=== PATIENT | female | born 1985 | race African-American/Black ===

== ENCOUNTER 2017-10-27 17:17 | Emergency (ER) | payer MEDICAID, OTHER ==
[~2017-10-27] VITALS: Ht 157.5 cm; Wt 79.4 kg
[2017-10-27 17:22] VITALS: BP 143/90
[2017-10-27 18:34] LABS: Basophils # (auto) 0.1 uL; Basophils % (auto) 1.1 % (0.0-2.0); Eosinophils # (auto) 0.1 uL; Eosinophils % (auto) 2.1 % (0.0-7.0); Hematocrit 38.9 % (36.0-46.0); Hemoglobin 12.6 g/dL (12.2-16.2); Lymphocytes # (auto) 1.8 uL; Lymphocytes % (auto) 27.5 % (10.0-50.0); Mean Corpuscular Hemoglobin 27.3 pg (28.0-32.0); Mean Corpuscular Hgb Conc. 32.3 g/dL (32.0-36.0); Mean Corpuscular Volume 84.3 fL (80.0-100.0); Monocytes # (auto) 0.4 uL; Monocytes % (auto) 6.7 % (0.0-12.0); Neutrophils # (auto) 4.1 uL; Neutrophils % (auto) 62.6 % (37.0-80.0); Nucleated Red Blood Cells % 0.1 %; Platelet Count (auto) 155 10^3/uL (140-450); Red Blood Cells 4.61 10^6/uL (4.0-5.20); Red Cell Distribution Width 13.7 % (11.8-14.3); White Blood Cell 6.5 10^3/uL (4.4-10.8)
[2017-10-27 18:57] LABS: Alanine Aminotransferase 25 U/L (13-56); Albumin 3.7 g/dL (3.4-5.0); Anion Gap 9 (5-15); Aspartate Aminotransferase 13 U/L (15-37); Blood Urea Nitrogen 12 mg/dL (7-18); Calcium 8.6 mg/dL (8.5-10.1); Carbon Dioxide 22 mmol/L (21-32); Chloride 108 mmol/L (98-107); GFR African American 98 mL/min; GFR Non-African American 81 mL/min; Glucose 84 mg/dL (74-106); Magnesium 2.3 mg/dL (1.6-2.6); Potassium 3.7 mmol/L (3.5-5.1); Sodium 139 mmol/L (136-145)
[2017-10-27 19:02] LABS: Alkaline Phosphatase 60 U/L (45-117); Bilirubin, Total 0.2 mg/dL (0.2-1.0); Total Protein 7.2 g/dL (6.4-8.2)
== END 2017-10-28 01:16 | disposition left against medical advice (07) ==
LOC: ER 17:20
DX: R07.9 Chest pain, unspecified (principal); Z53.21 Procedure and treatment not carried out due to patient leaving prior to being seen by health care provider
CPT/HCPCS: 36415; 71046; 80053; 83735; 84484; 85025; 93005

== ENCOUNTER 2019-01-06 12:45 | Observation (INO) | payer MEDICAID ==
[~2019-01-06] VITALS: Ht 157.5 cm; Wt 74.4 kg
[2019-01-06] MEDS ORDERED: PROMETHAZINE HCL 25 MG/ML 1ML IV ONE (13:45)
[2019-01-06] MEDS ORDERED: LACTATED RINGER'S 1,000 ML IV ONE (13:45)
[2019-01-06] MEDS ORDERED: PREN-96 PO (14:57)
[2019-01-06] MEDS ORDERED: FOLI1TAB6 PO (14:57)
== END 2019-01-06 15:05 | disposition home or self-care (01) | DRG 566 ==
LOC: LDRP 12:45
PROVIDERS: ADMIT Obstetrics & Gynecology; ATTEND Obstetrics & Gynecology
DX: O21.2 Late vomiting of pregnancy (principal); E86.0 Dehydration; O99.282 Endocrine, nutritional and metabolic diseases complicating pregnancy, second trimester; O26.892 Other specified pregnancy related conditions, second trimester; R51 Headache; O99.332 Smoking (tobacco) complicating pregnancy, second trimester; F17.200 Nicotine dependence, unspecified, uncomplicated; O99.322 Drug use complicating pregnancy, second trimester; F12.90 Cannabis use, unspecified, uncomplicated; Z3A.23 23 weeks gestation of pregnancy
CPT/HCPCS: 59025; 81002; 96374; G0378; J2550; 96365; 96366

== ENCOUNTER 2021-12-25 03:56 | Inpatient (IN) | payer MEDICAID ==
[~2021-12-25] VITALS: Ht 157.5 cm; Wt 79.4 kg
[2021-12-25] VITALS (8 sets, daily range): BP systolic 103–137; BP diastolic 59–75
[~2021-12-25 03:56] MED LIST: FOLI1TAB6 PO; PREN-96 PO
[2021-12-25] MEDS ORDERED: DERMOPLAST 60ML BOTTLE TOP ONE (04:08)
[2021-12-25] MEDS ORDERED: LIDOCAINE 2%HCL (LOCAL ANESTH.) INJ 10ml MDV ONE ×2 (04:08→04:24)
[2021-12-25] MEDS ORDERED: miSOPROStol 100 mcg TAB ONE (04:08)
[2021-12-25] MEDS ORDERED: METHYLERGONOVINE MALEATE 0.2 MG/ML AMP IM ONE (04:09)
[2021-12-25] MEDS ORDERED: WITCH HAZEL-GLYCERIN PAD TOP ONE (04:09)
[2021-12-25] MEDS ORDERED: PHISODERM TOP SOLN 240ML BTL TOP ONE (04:09)
[2021-12-25] MEDS ORDERED: LACT. RINGERS/OXYTOCIN 20UNITS 1,000 ML IV ONE (04:09)
[2021-12-25] MEDS ORDERED: CARBOPROST TROMETHAMINE 250 MCG/1ML VIAL IM ONE (04:09)
[2021-12-25] MEDS ORDERED: PENICILLIN G POT 5MIL/D5 50ML 50 ML IV ONE (04:10)
[2021-12-25] MEDS ORDERED: LACTATED RINGER'S 1,000 ML IV SCH (04:15)
[2021-12-25 04:45] LABS: Basophils # (auto) 0 10 ^3/uL (0-0.2); Basophils % (auto) 0.8 % (0.0-2.0); Eosinophils # (auto) 0.1 10 ^3/uL (0-0.8); Eosinophils % (auto) 1.1 % (0.0-7.0); Hematocrit 34.2 % (36.0-46.0); Hemoglobin 11.6 g/dL (12.2-16.2); Lymphocytes # (auto) 1.3 10 ^3/uL (0.4-5.4); Lymphocytes % (auto) 21.6 % (10.0-50.0); Mean Corpuscular Hemoglobin 28.5 pg (28.0-32.0); Mean Corpuscular Hgb Conc. 33.8 g/dL (32.0-36.0); Mean Corpuscular Volume 84.2 fL (80.0-100.0); Monocytes # (auto) 0.5 10 ^3/uL (0-1.3); Monocytes % (auto) 9.1 % (0.0-12.0); Neutrophils % (auto) 67.4 % (37.0-80.0); Nucleated Red Blood Cells % 0.2 %; Red Blood Cells 4.06 10^6/uL (4.0-5.20); Red Cell Distribution Width 14.6 % (11.8-14.3); White Blood Cell 5.9 10^3/uL (4.4-10.8)
[2021-12-25 05:00] LABS: Albumin 3.1 g/dL (3.4-5.0); Calcium 9.6 mg/dL (8.5-10.1); INR 0.89 (0.9-1.15); Partial Thromboplastin Time 28.5 sec (23.6-33.0); Potassium 4.2 mmol/L (3.5-5.1)
[2021-12-25 05:03] LABS: Bilirubin, Total 0.2 mg/dL (0.2-1.0); Total Protein 7.2 g/dL (6.4-8.2)
[2021-12-25] MEDS ORDERED: ONDANSETRON ODT 4 MG TAB PO PRN (05:15)
[2021-12-25] MEDS ORDERED: ONDANSETRON HCL 4 MG/2 ML VIAL ONE (05:15)
[2021-12-25 05:47] LABS: Urine Bacteria NONE SEEN /hpf (None Seen); Urine Blood TRACE /uL (Negative); Urine Specific Gravity 1.017 (1.001-1.035); Urine WBC <1 /hpf (0 - 5)
[2021-12-25 05:53] LABS: Alcohol, Urine < 3.0 mg/dL (0-10); Amphetamine Screen, Urine NEGATIVE (NEGATIVE); Barbiturate Scree,Urine NEGATIVE (NEGATIVE); Benzodiazephine Screen, Urine NEGATIVE (NEGATIVE); Cannabinoid Screen, Urine POSITIVE (NEGATIVE); Cocaine Screen, Urine NEGATIVE (NEGATIVE); Opiate Scree,Urine NEGATIVE (NEGATIVE); Phencyclidine Screen, Urine NEGATIVE (NEGATIVE)
[2021-12-25] MEDS: IBUPROFEN 600 MG TAB PO PRN ×2 (12:04→19:00)
[2021-12-25] MEDS ORDERED: WITCH HAZEL-GLYCERIN PAD TOP PRN (22:15)
[2021-12-25] MEDS: ACETAMINOPHEN 325 MG TAB PO PRN (22:57)
[2021-12-26 03:00] VITALS: BP 96/58
[2021-12-26] MEDS: IBUPROFEN 600 MG TAB PO PRN (03:53)
[2021-12-26] MEDS: ACETAMINOPHEN 325 MG TAB PO PRN (04:14)
[2021-12-26] MEDS ORDERED: DOCUSATE SOD 100 MG CAP PO SCH (04:15)
[2021-12-26] MEDS ORDERED: DOCUSATE SOD 100 MG CAP PO ONE (05:02)
[2021-12-26 07:00] VITALS: BP 99/57
[2021-12-26 11:00] VITALS: BP 105/65
[2021-12-27 07:06] LABS: Rubella Antibodies, IgG 3.68 index (Immune >0.99)
[2021-12-27 08:06] LABS: RPR Non Reactive (Non Reactive)
== END 2021-12-26 12:06 | disposition home or self-care (01) | DRG 560 ==
LOC: LDRP 03:56 → OBSVTOIN 03:56 → LDRP 07:33
PROVIDERS: ADMIT Obstetrics & Gynecology; ATTEND Obstetrics & Gynecology
PROC: 10E0XZZ Delivery of Products of Conception, External Approach (ICD-10-PCS; principal; 2021-12-25)
PROC: 0HQ9XZZ Repair Perineum Skin, External Approach (ICD-10-PCS; 2021-12-25)
DX: O70.0 First degree perineal laceration during delivery (principal); Z37.0 Single live birth; Z20.822 Contact with and (suspected) exposure to COVID-19; Z3A.38 38 weeks gestation of pregnancy; Z90.49 Acquired absence of other specified parts of digestive tract; Z88.2 Allergy status to sulfonamides
CPT/HCPCS: 36415; 59025; 59409; 80053; 80307; 81001; 81002; 85025; 85610; 85730; 86592; 86703; 86762; 86850; 86900; 86901; 87340; 94760; 96360; 96361; 96365; G0378; J2001; J2405; J2540; J2590